=== PATIENT | female | born 1985 | race Hispanic/Latino ===

== ENCOUNTER 2017-06-11 15:07 | Emergency (ER) | payer SELFPAY ==
[2017-06-11] MEDS ORDERED: BOOSTRIX IM ONE (19:05)
[2017-06-11] MEDS ORDERED: NORCO 5/325 PO ONE (19:05)
--- NOTE | 2017-06-11 19:05 | Emergency Department Report ---
ED Head Trauma HPI - General Chief complaint: Wound/Laceration Stated complaint: NAUSEA/ FACE INJURY Time Seen by Provider: 06/11/17 18:58 Source: patient Mode of arrival: Ambulatory Limitations: No Limitations - History of Present Illness Initial comments: 32-year-old female past medical history none presents with complaint of multiple facial abrasions and lacerations. Patient states that she tripped over her dog while walking outside her home. Denies any loss of consciousness. Patient has visible deep abrasions to anterior scalp and bridge of nose. No other injury sustained. Patient is awake alert and oriented 3 not appear to be in severe distress. States she felt slightly nauseous earlier today. Patient is fully lucid conversant and ambulatory. Fall occurred approximately 48 hours ago. Tetanus vaccine is not up-to-date as per patient. MD Complaint: head injury, fall Onset/Timin -: days(s) Location: frontal Loss of Consciousness: no Previous Trauma to this Area: No Place: outdoors Severity: moderate Severity scale (0 -10): 5 Quality: sharp Consistency: constant Provoking factors: none known Associated Symptoms: denies other symptoms - Related Data Previous Rx's Medication Instructions Recorded Last Taken Type Acetaminophen/Codeine [Tylenol 1 tab PO Q6H PRN #14 tab 06/11/17 Unknown Rx /Codeine # 3 tab] Bacitracin Zinc Oint [Antibiotic 1 applicatio TP BID #1 tube 06/11/17 Unknown Rx Oint] Cephalexin [Keflex] 500 mg PO BID #14 capsule 06/11/17 Unknown Rx Ibuprofen [Motrin] 800 mg PO Q8HR PRN #30 tablet 06/11/17 Unknown Rx Allergies/Adverse reactions: Allergies Allergy/AdvReac Type Severity Reaction Status Date / Time No Known Allergies Allergy Unverified 06/11/17 15:26 ED Review of Systems ROS: Stated complaint: NAUSEA/ FACE INJURY Other details as noted in HPI Constitutional: denies: chills, fever Eyes: denies: eye pain, eye discharge, vision change ENT: denies: ear pain, throat pain Respiratory: denies: cough, shortness of breath, wheezing Cardiovascular: denies: chest pain, palpitations Endocrine: no symptoms reported Gastrointestinal: denies: abdominal pain, nausea, diarrhea Genitourinary: denies: urgency, dysuria, discharge Musculoskeletal: denies: back pain, joint swelling, arthralgia Skin: as per HPI. denies: rash, lesions Neurological: denies: headache, weakness, paresthesias Psychiatric: denies: anxiety, depression Hematological/Lymphatic: denies: easy bleeding, easy bruising ED Past Medical Hx - Past Medical History Previous Medical History?: No - Surgical History Past Surgical History?: Yes Additional Surgical History: D&C, Lipo, Breast Implants - Social History Smoking Status: Current Every Day Smoker Substance Use Type: Alcohol - Medications Home Medications: Home Medications Medication Instructions Recorded Confirmed Last Taken Type Acetaminophen/Codeine [Tylenol 1 tab PO Q6H PRN #14 tab 06/11/17 Unknown Rx /Codeine # 3 tab] Bacitracin Zinc Oint [Antibiotic 1 applicatio TP BID #1 tube 06/11/17 Unknown Rx Oint] Cephalexin [Keflex] 500 mg PO BID #14 capsule 06/11/17 Unknown Rx Ibuprofen [Motrin] 800 mg PO Q8HR PRN #30 tablet 06/11/17 Unknown Rx ED Physical Exam - General Limitations: No Limitations General appearance: alert, in no apparent distress - Head Head exam: Present: atraumatic, normocephalic - Eye Eye exam: Present: normal appearance, PERRL, EOMI - ENT ENT exam: Present: mucous membranes moist - Neck Neck exam: Present: normal inspection - Respiratory Respiratory exam: Present: normal lung sounds bilaterally. Absent: respiratory distress - Cardiovascular Cardiovascular Exam: Present: regular rate, normal rhythm. Absent: systolic murmur, diastolic murmur, rubs, gallop - GI/Abdominal GI/Abdominal exam: Present: soft, normal bowel sounds - External exam: Present: normal external exam Speculum exam: Present: normal speculum exam Bi-manual exam: Present: normal bi-manual exam - Extremities Exam Extremities exam: Present: normal inspection - Back Exam Back exam: Present: normal inspection - Neurological Exam Neurological exam: Present: alert, oriented X3 - Psychiatric Psychiatric exam: Present: normal affect, normal mood - Skin Skin exam: Present: warm, dry, intact, normal color. Absent: rash ED Course Vital Signs 06/11/17 06/11/17 06/11/17 15:26 19:34 21:50 Temperature 98.9 F Pulse Rate 84 90 Respiratory 17 18 18 Rate Blood Pressure 136/71 Blood Pressure 133/90 [Left] O2 Sat by Pulse 100 100 Oximetry 06/11/17 21:54 Temperature Pulse Rate Respiratory 18 Rate Blood Pressure Blood Pressure [Left] O2 Sat by Pulse Oximetry - Lab Data Lab Results 06/11/17 Range/Units 19:00 Urine HCG, Qual Negative (Negative) - Medical Decision Making A/P: Facial abrasion, facial contusion, concussion 1-bacitracin ointment to skin for one day 2-Keflex 500 mg twice a day 7 days, Zofran when necessary 3-Motrin and short course Tylenol 3 when necessary 4- CTs show no fractures 5- case discussed with Dr. Bartholomew who also examined the patient. I will refer patient to plastic surgery for multiple facial abrasions. Deep superficial abrasion to bridge of nose however since it has been more than 48 hours no indication for suturing at this time. - NEXUS Criteria Focal neurological deficit present: No Midline spinal tenderness present: No Altered level of consciousness: No Intoxication present: No Distracting injury present: No NEXUS results: C-Spine can be cleared clinically by these results. Imaging is not required. Critical care attestation.: If time is entered above; I have spent that time in minutes in the direct care of this critically ill patient, excluding procedure time. ED Disposition Clinical Impression: Facial abrasion Qualifiers: Encounter type: initial encounter Qualified Code(s): S00.81XA - Abrasion of other part of head, initial encounter Minor head injury Qualifiers: Encounter type: initial encounter Qualified Code(s): S00.90XA - Unspecified superficial injury of unspecified part of head, initial encounter Fall with no significant injury Qualifiers: Encounter type: initial encounter Qualified Code(s): W19.XXXA - Unspecified fall, initial encounter Disposition: DC-01 TO HOME OR SELFCARE Is pt being admited?: No Does the pt Need Aspirin: No Condition: Stable Instructions: Acute Wound Care (ED), Abrasion (ED), Post Concussion Syndrome ( ED) Additional Instructions: [email or web address] Prescriptions: Acetaminophen/Codeine [Tylenol /Codeine # 3 tab] 1 tab PO Q6H PRN #14 tab PRN Reason: Pain Bacitracin Zinc Oint [Antibiotic Oint] 1 applicatio TP BID #1 tube Cephalexin [Keflex] 500 mg PO BID #14 capsule Ibuprofen [Motrin] 800 mg PO Q8HR PRN #30 tablet PRN Reason: Pain Referrals: [facility] [Outside] - 3-5 Days [facility] [Provider Group] - 3-5 Days Forms: Work/School Release Form(ED) Time of Disposition: 21:40
--- NOTE | 2017-06-11 20:10 | Cat Scan Report ---
FINAL REPORT PROCEDURE: CT HEAD/BRAIN WO CON TECHNIQUE: Computerized tomography of the head was performed without contrast material. HISTORY: s/p fall + loc COMPARISON: No prior studies are available for comparison. FINDINGS: Skull and scalp: Normal. Paranasal sinuses: Normal. Ventricles and subarachnoid spaces: Normal. Cerebrum: No evidence of hemorrhage, acute infarction or mass . Cerebellum and brainstem: No evidence of hemorrhage, acute infarction or mass. Vasculature: Normal. Comments: None. IMPRESSION: Normal Examination
[2017-06-11] MEDS ORDERED: ZOFRAN ODT PO ONE (20:13)
--- NOTE | 2017-06-11 20:39 | Cat Scan Report ---
FINAL REPORT PROCEDURE: CT FACIAL BONES WO CON TECHNIQUE: Computerized tomography of the facial bones and soft tissues with axial and coronal sections performed from the cranial aspect of the frontal sinuses to the caudal portion of the mandible without contrast material. HISTORY: ? nasal fracture COMPARISON: No prior studies are available for comparison. FINDINGS: Bones: No significant abnormality. Paranasal sinuses: 6 millimeter polypoid lesion is noted involving the right maxillary sinus most likely representing a mucous retention cyst.. Soft tissues: Mild degree right frontal scalp swelling is noted. Other: None. IMPRESSION: No acute fracture.
--- NOTE | 2017-06-11 20:42 | Cat Scan Report ---
FINAL REPORT PROCEDURE: CT CERVICAL SPINE WO CON TECHNIQUE: Computerized tomography of the cervical spine was performed from the skull base to T1 without contrast material. HISTORY: s/p fall neck pain COMPARISON: No prior studies are available for comparison. FINDINGS: There is straightening of the cervical spine C1-2: No significant abnormality. C2-3: No significant abnormality. C3-4: No significant abnormality. C4-5: No significant abnormality. C5-6: No significant abnormality. C6-7: No significant abnormality. C7-T1: No significant abnormality. Other: No acute fracture is noted. IMPRESSION: No acute fracture Straightening of the cervical spine is most likely secondary to spasm or positioning.
[2017-06-11] MEDS ORDERED: MOTRIN PO ONE (21:36)
[2017-06-11] MEDS ORDERED: KEFLEX PO ONE (21:40)
[2017-06-11] MEDS ORDERED: TRIPLE ANTIBIOTIC TP ONE (21:43)
[2017-06-12 05:44] VITALS: BP 133/90
== END 2017-06-11 21:50 | disposition home or self-care (01) ==
LOC: ED 15:07
DX: S00.81XA Abrasion of other part of head, initial encounter (principal); F17.200 Nicotine dependence, unspecified, uncomplicated; W01.0XXA Fall on same level from slipping, tripping and stumbling without subsequent striking against object, initial encounter; Y93.01 Activity, walking, marching and hiking; Y99.8 Other external cause status; Y92.89 Other specified places as the place of occurrence of the external cause
CPT/HCPCS: 70450; 70486; 72125; 81025; 90471; 90715; A6250; Q0162